=== PATIENT | female | born 1950 | race Asian ===

== ENCOUNTER → 2021-07-17 | Day surgery (SDC) | payer OTHER ==
[2021-07-16 09:12] LABS: BASOPHILS % 0.4 % (0.0-1.0); EOSINOPHILS # (AUTO) 0.1 (0.0-0.4); EOSINOPHILS % 0.9 % (0.0-6.0); HEMATOCRIT 38.5 % (34.2-44.1); HEMOGLOBIN 12.6 g/dL (12.0-16.0); LYMPHOCYTES # (AUTO) 1.6 (1.0-3.2); LYMPHOCYTES % 14.3 % (18.0-39.1); MEAN CORPUSCULAR HEMOGLOBIN 29.1 pg (28-32); MEAN CORPUSCULAR HGB CONC 32.7 g/dL (31-35); MEAN CORPUSCULAR VOLUME 88.9 fL (81-99); MONOCYTES # (AUTO) 0.6 (0.2-0.8); MONOCYTES % 5.2 % (4.4-11.3); NEUTROPHILS # (AUTO) 8.6 (2.1-6.9); NEUTROPHILS % 78.7 % (38.7-80.0); PLATELET COUNT 299 x10e3/uL (140-360); RED BLOOD COUNT 4.33 x10e6/uL (3.6-5.1); RED CELL DISTRIBUTION WIDTH 12.3 % (11.7-14.4)
[~2021-07-17] MED LIST: AMLODIPINE BESYL5 MG PO; LORATADINE10 MG PO; SIMETHICONE 40 MG/0.6 ML BTL ONE; SPIRONOLACTONE25 MG PO; SYNTHROID88 MCG PO; VITAMIN D PO
[2021-07-17 08:49] VITALS: BP 130/77
== END | disposition home or self-care (01) ==
LOC: OR 05:40
PROVIDERS: ATTEND Internal Medicine Gastroenterology
DX: A04.8 Other specified bacterial intestinal infections (principal); K31.7 Polyp of stomach and duodenum; K29.80 Duodenitis without bleeding; R13.10 Dysphagia, unspecified; I10 Essential (primary) hypertension; E73.9 Lactose intolerance, unspecified; M45.2 Ankylosing spondylitis of cervical region; E78.5 Hyperlipidemia, unspecified; Z01.810 Encounter for preprocedural cardiovascular examination; Z01.812 Encounter for preprocedural laboratory examination; Z20.822 Contact with and (suspected) exposure to COVID-19; Z79.899 Other long term (current) drug therapy
CPT/HCPCS: 36415; 43239; 85025; 88305; 88312; 93005; U0002